=== PATIENT | female | born 1970 | race Caucasian/White ===

== ENCOUNTER → 2019-01-29 | Outpatient (CLI) | payer BC ==
--- NOTE | 2019-01-29 12:24 | RADIOLOGY REPORT (SQ) ---
EXAM DESCRIPTION: LUMBAR SPINE 2 VIEWS; SACRUM AND COCCYX COMPLETED DATE/TIME: 01/29/2019 11:56 am REASON FOR STUDY: LOW BACK PAIN COMPARISON: None. FINDINGS: Two view lumbosacral spine, AP and lateral: Grade 1 listhesis at L3-4. Minimal retrolist hesis at L2-3. Slight convex right scoliotic curve. Mild disc space narrowing with small osteophyte s at multiple levels. Facet arthropathy is present. No gross fracture or worrisome bone lesion. Three views sacrum and coccyx: SI joints relatively intact with minimal degenerative sclerosis. No sacral fracture or bone lesion detected. No coccyx fracture evident. Hips are relatively symmetric. Mild degenerative acetabular spurring bilaterally. IMPRESSION: 1. Lumbar spine degenerative change. 2. No worrisome sacrum or coccyx findings. TECHNICAL DOCUMENTATION: JOB ID: [id number] Reading location - IP/workstation name: [email or web address]
--- NOTE | 2019-01-29 12:24 | RADIOLOGY REPORT (SQ) ---
EXAM DESCRIPTION: LUMBAR SPINE 2 VIEWS; SACRUM AND COCCYX COMPLETED DATE/TIME: 01/29/2019 11:56 am REASON FOR STUDY: LOW BACK PAIN COMPARISON: None. FINDINGS: Two view lumbosacral spine, AP and lateral: Grade 1 listhesis at L3-4. Minimal retrolist hesis at L2-3. Slight convex right scoliotic curve. Mild disc space narrowing with small osteophyte s at multiple levels. Facet arthropathy is present. No gross fracture or worrisome bone lesion. Three views sacrum and coccyx: SI joints relatively intact with minimal degenerative sclerosis. No sacral fracture or bone lesion detected. No coccyx fracture evident. Hips are relatively symmetric. Mild degenerative acetabular spurring bilaterally. IMPRESSION: 1. Lumbar spine degenerative change. 2. No worrisome sacrum or coccyx findings. TECHNICAL DOCUMENTATION: JOB ID: [id number] Reading location - IP/workstation name: [email or web address]
== END ==
LOC: OD 11:15
PROVIDERS: ATTEND Internal Medicine Critical Care Medicine
DX: M53.3 Sacrococcygeal disorders, not elsewhere classified (principal); M54.5 Low back pain
CPT/HCPCS: 72100; 72220

== ENCOUNTER → 2019-07-29 | Outpatient (CLI) | payer BC ==
[2019-07-29 18:27] LABS: ABSOLUTE EOSINOPHILS # (AUTO) 0.2 10^3/uL (0.0-0.6); ABSOLUTE LYMPHOCYTES (AUTO) 2.2 10^3/uL (0.5-4.7); ABSOLUTE MONOCYTES (AUTO) 0.3 10^3/uL (0.1-1.4); ABSOLUTE NEUT (AUTO) 3.2 10^3/uL (1.7-8.2); BASOPHILS % (AUTO) 0.4 % (0-2); EOSINOPHILS % (AUTO) 3.8 % (0-6); HEMATOCRIT 38.1 % (36.0-47.0); HEMOGLOBIN 12.5 g/dL (12.0-15.5); LYMPHOCYTES % (AUTO) 36.6 % (13-45); MEAN CORPUSCULAR HEMOGLOBIN 27.4 pg (27.0-33.4); MEAN CORPUSCULAR HGB CONC 32.9 g/dL (32.0-36.0); MEAN CORPUSCULAR VOLUME 83 fl (80-97); MONOCYTES % (AUTO) 5.8 % (3-13); PLATELET COUNT 271 10^3/uL (150-450); RED BLOOD COUNT 4.57 10^6/uL (3.72-5.28); RED CELL DISTRIBUTION WIDTH 13.4 % (11.5-14.0); SEGMENTED NEUTROPHILS % (AUTO) 53.4 % (42-78); TOTAL CELLS COUNTED % (AUTO) 100 %; WHITE BLOOD COUNT 5.9 10^3/uL (4.0-10.5)
[2019-07-29 19:08] LABS: ERYTHROCYTE SEDIMENTATION RATE 14 mm/hr (0-20)
== END ==
LOC: OD 16:07
PROVIDERS: ATTEND Family Medicine
DX: M13.861 Other specified arthritis, right knee (principal)
CPT/HCPCS: 36415; 82306; 85025; 85652; 86038; 86140; 86200; 86431